=== PATIENT | female | born 1980 | race African-American/Black ===

== ENCOUNTER 2018-05-27 10:37 | Emergency (ER) | payer OTHER ==
[~2018-05-27] VITALS: Ht 167.6 cm; Wt 78.0 kg
[2018-05-27] MEDS ORDERED: ACETAMINOPHEN 325MG TABLET PO ONE (11:15)
[2018-05-27] MEDS ORDERED: KETOROLAC 60MG/2ML VIAL IM ONE (11:15)
[2018-05-27 12:13] LABS: HEMATOCRIT. 41.4 % (36.0-48.0); MEAN CORPUSCULAR HEMOGLOBIN 31.4 pg (28.0-32.0); MEAN CORPUSCULAR VOLUME 92.7 fL (81.0-99.0); MEAN PLATELET VOLUME 7.2 fl (7.4-10.4); PLATELET 278 x1000/uL (130-400); RED BLOOD CELL COUNT 4.46 mill/uL (4.2-5.4); RED CELL DISTRIBUTION WIDTH 12.7 % (11.6-14.6)
[2018-05-27] MEDS ORDERED: IBUPROFEN 800MG TABLET PO ONE (12:45)
[2018-05-27] MEDS ORDERED: SODIUM CHLORIDE 0.9% 1,000 ML IV ONE (12:45)
[2018-05-27 12:50] LABS: PLATELET ESTIMATE NORMAL
[2018-05-27 13:22] VITALS: BP 109/60
== END 2018-05-27 13:59 | disposition home or self-care (01) ==
LOC: ER 10:37
DX: J32.9 Chronic sinusitis, unspecified (principal); R50.9 Fever, unspecified; M79.1 Myalgia; Z86.73 Personal history of transient ischemic attack (TIA), and cerebral infarction without residual deficits
CPT/HCPCS: 36415; 85025; 96372; 99284; J1885; J7030